=== PATIENT | male | born 1955 | race Caucasian/White ===

== ENCOUNTER 2018-04-10 13:06 | Inpatient (IN) | payer MEDICAID ==
--- NOTE | 2018-04-10 13:24 | EDPHY ---
H & P Stated Complaint: cough sob congestion nausea chills x weeks Time Seen by Provider: 04/10/18 13:24 HPI/ROS: HPI CHIEF COMPLAINT: Cough, congestion HISTORY OF PRESENT ILLNESS: This is a 63-year-old male, presents to the emergency room worsening cough, shortness of breath over the last week to 2 weeks. Patient is homeless. He smokes tobacco daily. He endorses productive cough green-yellow sputum. No blood. Complains of shortness of breath. Also endorses chills, sweats. Denies any significant pain. Past Medical History: Denies medical history denies taking any daily medications Past Surgical History: Denies surgical history Social History: Smokes tobacco daily, homeless. Family History: Noncontributory ROS REVIEW OF SYSTEMS: 10 Systems were reviewed and negative with the exception of the elements mentioned in the history of present illness. Exam Constitutional nontoxic, triage nursing summary reviewed, vital signs reviewed , awake/alert. Heart rate 116. Oxygen saturation 90%. 38.1 temp. Eyes normal conjunctivae and sclera, EOMI, PERRLA. HENT normal inspection, atraumatic, moist mucus membranes, no epistaxis, neck supple/ no meningismus, no raccoon eyes. Respiratory bronchitic sounding cough on exam. Wheezing throughout. No distress. Cardiovascular rate normal, regular rhythm, no murmur, no edema, distal pulses normal. Gastrointestinal soft, non-tender, no rebound, no guarding, normal bowel sounds, no distension, no pulsatile mass. Genitourinary no CVA tenderness. Musculoskeletal no midline vertebral tenderness, full range of motion, no calf swelling, no tenderness of extremities, no meningismus, good pulses, neurovascularly intact. Skin pink, warm, & dry, no rash, skin atraumatic. Neurologic awake, alert and oriented x 3, AAOx3, moves all 4 extremities equally, motor intact, sensory intact, CN II-XII intact, normal cerebellar, normal vision, normal speech. Psychiatric normal mood/affect. Heme/Lymph/Immune no lymphadenopathy. Differential Diagnosis: Includes but is not limited to in a particular order pneumonia, influenza, viral syndrome, COPD, reactive airway disease, viral pneumonia, bacterial pneumonia. Medical Decision Making: Plan for this patient IV establishment IV fluid bolus , basic labs, chest x-ray, DuoNeb breathing treatment, influenza re-evaluate. Re-evaluation: Patient here with cough, shortness of breath, fever and mild hypoxia. Patient's chest x-ray reviewed shows no pneumonia Patient is influenza a positive. Patient be started on Tamiflu. Plan for admission to the hospital for acute febrile illness, influenza, shortness of breath, hypoxia, wheezing and underlying lung disease. He is homeless. 1st dose of Tamiflu given in the emergency room. X-ray reviewed no pneumonia. Patient updated about influenza plan for hospital admission due to hypoxia, fever, influenza and him being homeless. I have ordered him Tamiflu. Consult the hospitalist service Dr. De La Torre who agrees to admit Source: Patient - Medical/Surgical History Hx Asthma: No Hx Chronic Respiratory Disease: No Hx Diabetes: No Hx Cardiac Disease: No Hx Renal Disease: No Hx Cirrhosis: No Hx Alcoholism: No Hx HIV/AIDS: No Hx Splenectomy or Spleen Trauma: No Other PMH: (denies). pna - Social History Smoking Status: Current every day smoker Constitutional: Initial Vital Signs Temperature (C) 38.1 C 04/10/18 13:13 Heart Rate 116 H 04/10/18 13:13 Respiratory Rate 18 04/10/18 13:13 Blood Pressure 146/92 H 04/10/18 13:13 O2 Sat (%) 90 L 04/10/18 13:13 O2 Delivery Mode Nasal Cannula O2 (L/minute) 2 Allergies/Adverse Reactions: No Known Allergies Allergy (Unverified 04/10/18 13:58) Medical Decision Making - Diagnostics Imaging Results: Imaging Impressions Chest X-Ray 04/10/18 13:32 Impression: Suspect airways disease with no superimposed pneumonia identified. - Data Points Laboratory Results: Laboratory Results 04/10/18 13:40 04/10/18 13:40 04/10/18 04/10/18 04/10/18 13:46 13:40 13:40 WBC 10.98 10^3/uL H 10^3/uL (3.80-9.50) RBC 5.08 10^6/uL 10^6/uL (4.40-6.38) Hgb 16.2 g/dL g/dL (13.7-17.5) Hct 48.0 % % (40.0-51.0) MCV 94.5 fL fL (81.5-99.8) MCH 31.9 pg pg (27.9-34.1) MCHC 33.8 g/dL g/dL (32.4-36.7) RDW 12.4 % % (11.5-15.2) Plt Count 183 10^3/uL 10^3/uL (150-400) MPV 10.3 fL fL (8.7-11.7) Neut % (Auto) 80.7 % H % (39.3-74.2) Lymph % (Auto) 7.7 % L % (15.0-45.0) [place] % (Auto) 10.8 % % (4.5-13.0) Eos % (Auto) 0.1 % L % (0.6-7.6) Baso % (Auto) 0.2 % L % (0.3-1.7) Nucleat RBC Rel Count 0.0 % % (0.0-0.2) Absolute Neuts (auto) 8.87 10^3/uL H 10^3/uL (1.70-6.50) Absolute Lymphs (auto) 0.84 10^3/uL L 10^3/uL (1.00-3.00) Absolute Monos (auto) 1.19 10^3/uL H 10^3/uL (0.30-0.80) Absolute Eos (auto) 0.01 10^3/uL L 10^3/uL (0.03-0.40) Absolute Basos (auto) 0.02 10^3/uL 10^3/uL (0.02-0.10) Absolute Nucleated RBC 0.00 10^3/uL 10^3/uL (0-0.01) Immature Gran % 0.5 % % (0.0-1.1) Immature Gran # 0.05 10^3/uL 10^3/uL (0.00-0.10) Sodium 130 mEq/L L mEq/L (135-145) Potassium 4.2 mEq/L mEq/L (3.5-5.2) Chloride 97 mEq/L mEq/L (97-110) Carbon Dioxide 25 mEq/l mEq/l (22-31) Anion Gap 8 mEq/L mEq/L (6-14) BUN 9 mg/dL mg/dL (7-23) Creatinine 0.7 mg/dL mg/dL (0.7-1.3) Estimated GFR > 60 Glucose 105 mg/dL H mg/dL (70-100) Calcium 8.2 mg/dL L mg/dL (8.5-10.4) POC Troponin I 0.01 ng/mL ng/mL (0.00-0.08) Nasal Influenza A PCR Nasal Influenza B PCR 04/10/18 13:25 WBC RBC Hgb Hct MCV MCH MCHC RDW Plt Count MPV Neut % (Auto) Lymph % (Auto) [place] % (Auto) Eos % (Auto) Baso % (Auto) Nucleat RBC Rel Count Absolute Neuts (auto) Absolute Lymphs (auto) Absolute Monos (auto) Absolute Eos (auto) Absolute Basos (auto) Absolute Nucleated RBC Immature Gran % Immature Gran # Sodium Potassium Chloride Carbon Dioxide Anion Gap BUN Creatinine Estimated GFR Glucose Calcium POC Troponin I Nasal Influenza A PCR FLU A DETECTED H (NEGATIVE) Nasal Influenza B PCR NEGATIVE FOR FLU B (NEGATIVE) Medications Given: Discontinued Medications Acetaminophen (Tylenol) 1,000 mg PO EDNOW ONE Stop: 04/10/18 13:44 Last Admin: 04/10/18 14:33 Dose: 1,000 mg Albuterol/Ipratropium (Duoneb) 3 ml IH EDNOW ONE Stop: 04/10/18 13:33 Last Admin: 04/10/18 13:48 Dose: 3 ml Point of Care Test Results: Chemistry 04/10/18 13:46 POC Troponin I 0.01 ng/mL ng/mL (0.00-0.08) Departure - Departure Disposition: [facility] Inpatient Acute Clinical Impression: Hypoxia, Influenza A Condition: Fair Referrals: NONE *PRIMARY CARE P,. [Primary Care Provider] - As per Instructions
[2018-04-10] MEDS ORDERED: IPRATROPIUM/ALBUTEROL 3 ML DEYVIAL IH ONE (13:32)
[2018-04-10] MEDS ORDERED: ACETAMINOPHEN 500 MG TAB PO ONE (13:43)
[2018-04-10 13:55] LABS: PLATELET COUNT 183 10^3/uL (150-400)
[2018-04-10] MEDS ORDERED: OSELTAMIVIR PHOSPHATE 75 MG CAP PO ONE (14:36)
[2018-04-10] MEDS ORDERED: ONDANSETRON DISINTEGRATING 4 MG TAB PO PRN (14:52)
[2018-04-10] MEDS ORDERED: ONDANSETRON 4 MG/2 ML VIAL IVP PRN (14:52)
[2018-04-10] MEDS ORDERED: BENZONATATE 100 MG CAP PO PRN (14:53)
[2018-04-10] MEDS ORDERED: IPRATROPIUM/ALBUTEROL 3 ML DEYVIAL IH PRN (14:55)
[2018-04-10] MEDS ORDERED: NICOTINE 21 MG/24 HR PATCH TD SCH (15:00)
--- NOTE | 2018-04-10 15:34 | GHP ---
[f rep st] HISTORY AND PHYSICAL DATE OF ADMISSION: 04/10/2018 CHIEF COMPLAINT: Fever, influenza A, cough. HISTORY OF PRESENT ILLNESS: A 63-year-old homeless male with no past medical history, presenting with worsening cough, shortness of breath and fevers over the past 2 weeks. Endorses a productive cough with yellow sputum. Has had subjective fevers, myalgias, headache, nausea, and vomiting. He has not been able to keep down much p.o. intake. In the ER, he was positive for influenza A , was tachycardic to the 116s. REVIEW OF SYSTEMS: I completed a 10-point review of systems, negative except as noted in the HPI. PAST MEDICAL HISTORY: Tobacco dependence. PAST SURGICAL HISTORY: Ankle surgery, heel surgery, abdominal surgery secondary to a volvulus, wrist surgery. SOCIAL HISTORY: Tobacco: A pack a day for 30 years. Occasional alcohol. Occasional marijuana. Lives in a retirement. FAMILY HISTORY: No diabetes or hypertension. ALLERGIES: None. HOME MEDICATIONS: None. PHYSICAL EXAMINATION: VITAL SIGNS: Temperature 38.1, blood pressure is 146/92 , heart rate 116, respirations 18, 90% on room air, 92 on 2 L. GENERAL: Lying in bed fatigued, but no acute distress. HEENT: PERRLA. Mildly dry mucous membranes. CV: Tachy but regular. No murmurs, gallops, or rubs. LUNGS: Diminished breath sounds throughout. Poor air movement. No wheezes or crackles. ABDOMEN: Soft, nontender, nondistended. Positive bowel sounds. : No [place]. MUSCULOSKELETAL: 5/5 upper and lower extremities. NEURO: 2 through 12 intact. PSYCH: Alert and oriented x3. LABORATORY: WBC 10, hemoglobin 16, hematocrit 48, platelets 183. Sodium 130, potassium 4.2, chloride 197, carbon dioxide 25, creatinine 0.7, glucose 105, calcium 8.2. Troponin 0.01. Influenza A positive. Chest x-ray is personally reviewed by me. Mild peribronchial thickening. No effusion or opacity. ASSESSMENT AND PLAN: 1. Sepsis: febrile, tachycardia and influenza. Symptoms greater than 48 hours, thus will not start Tamiflu. Treat with IVFs, cough suppressants, Tylenol. No evidence of pneumonia on x-ray. Add DuoNeb and prednisone with significant tobacco history. 2. Tobacco dependence. Declined nicotine patch. 3. Hypovolemic hyponatremia. Intravenous fluids. Repeat in the morning. 4. Homelessness. Lives in a retirement. 5. Diet: Regular. 6. Deep venous thrombosis prophylaxis: Lovenox. DISPOSITION: Observation for DuoNeb, prednisone, IV fluids. /[id number]/MODL CAMILLA
[2018-04-10] MEDS: NS 1,000 ML IV SCH (17:23)
[2018-04-10] MEDS: predniSONE 20 MG TAB PO SCH (17:29)
[2018-04-10] MEDS: IBUPROFEN 600 MG TAB PO PRN (18:02)
[2018-04-10] MEDS: GUAIFENESIN/DM 10 ML UDCUP PO PRN (18:02)
[2018-04-11] MEDS: NS 1,000 ML IV SCH (04:22)
[2018-04-11] MEDS: predniSONE 20 MG TAB PO SCH (09:10)
[2018-04-11] MEDS: ENOXAPARIN 40 MG/0.4 ML SYR SC SCH (09:11)
[2018-04-11] MEDS ORDERED: CALCIUM CARBONATE 500 MG CHEWABLE TAB PO PRN (10:10)
[2018-04-11] MEDS: ACETAMINOPHEN 325 MG TAB PO PRN ×2 (10:38→18:13)
[2018-04-11] MEDS: NICOTINE 14 MG/24 HR PATCH TD SCH (10:38)
--- NOTE | 2018-04-11 10:42 | ASMTCMCOM ---
CM Note CM Note Notes: Pts case discussed w/ Dr. Carlin. Pt is a 63 y/o man admitted for hypoxia and influenza A. Pt is homeless and currently on a couple liters of o2. Pt is listed as self pay. CM spoke to Jessica harper/ [employer]. Pt has Medicaid and his Medicaid # is [id number]. CM made a referral to [facility]. Pt will most likely d/c without any needs. CM available for changes. Plan: Independent Date Signed: 04/11/2018 10:42 AM Electronically Signed By:BERONICA Vidal
--- NOTE | 2018-04-11 11:40 | HOSPPROG ---
Hospitalist Progress Note Assessment/Plan: 63yo homeless M here with 2 weeks of worsening shortness of breath and fevers found to have influenza A. # Sepsis: Fever, tachycardia with viral source. Physiology improved. # Influenza A - No tamiflu as sxs started >48 hours ago - Tylenol, cough suppressants - Schedule duonebs, prednisone with significant smoking hx # Acute hypoxia: Requiring 2-3L. - Wean as able to keep sat>90% #Hypovolemic hyponatremia: Normalized with IVF - Stop fluids # Tobacco use - Nicotine patch VTE ppx: LMWH Code: full Dispo: Switch to inpatient Subjective: Still feeling really crummy. Labored breathing, sweating. Body aches. Objective: Vital Signs Temp Pulse Resp BP Pulse Ox 36.6 C 85 20 148/98 H 94 04/11/18 07:22 04/11/18 07:22 04/11/18 07:22 04/11/18 07:22 04/11/18 07:22 Laboratory Results 04/11/18 04:20 04/10/18 04/11/18 04/12/18 05:59 05:59 05:59 Intake Total 1356 Output Total 501 Balance 855 - Physical Exam Constitutional: no apparent distress, unkempt Eyes: PERRL, anicteric sclera Ears, Nose, Mouth, Throat: moist mucous membranes Cardiovascular: regular rate and rhythym, no murmur, rub, or gallop, No edema Respiratory: no respiratory distress, reduced air movement, expiratory wheeze Gastrointestinal: normoactive bowel sounds, soft, non-tender abdomen, no palpable masses Genitourinary: no bladder fullness, no bladder tenderness, no renal bruits Skin: no rashes or abrasions, no fluctuance, no induration Musculoskeletal: full muscle strength, no muscle tenderness, normal joint ROM Neurologic: AAOx3, sensation intact bilaterally Psychiatric: interacting appropriately, not anxious, not encephalopathic, thought process linear ICD10 Worksheet Patient Problems: Problems Problem Status Onset Hypoxia Acute Influenza A Acute
[2018-04-11] MEDS: IBUPROFEN 600 MG TAB PO PRN (11:43)
[2018-04-11] MEDS: IPRATROPIUM/ALBUTEROL 3 ML DEYVIAL IH SCH ×3 (11:48→23:46)
[2018-04-11] MEDS: GUAIFENESIN/DM 10 ML UDCUP PO PRN ×2 (13:50→18:13)
--- NOTE | 2018-04-11 15:37 | PDMN ---
Medical Necessity Medical [place] [facility] [place] Sepsis, A-3 days: 63 yo homeless pt w/ cough, SOB. Dx w/ sepsis 2nd influenza, initially OBS for supportive care w/ IVF, O2, nebs and steroids. Pt requires additional MN as still requiring O2 for hypoxemia beyond OBS care, still w/ labored breathing. Change to IP status 04/11/18@1509 per MD order
[2018-04-12] MEDS: IPRATROPIUM/ALBUTEROL 3 ML DEYVIAL IH SCH ×2 (06:20→09:33)
[2018-04-12 08:19] VITALS: BP 121/95
[2018-04-12] MEDS: NICOTINE 14 MG/24 HR PATCH TD SCH (08:33)
[2018-04-12] MEDS: predniSONE 20 MG TAB PO SCH (08:33)
[2018-04-12] MEDS: ENOXAPARIN 40 MG/0.4 ML SYR SC SCH (08:33)
--- NOTE | 2018-04-12 09:29 | PDDCSUM ---
Discharge Summary Discharge Summary: Date of Admission: 04/10/2018 Date of Discharge: 04/12/2018 Studies: CXR Discharge Diagnoses: 1. Sepsis 2. Influenza A infection 3. Acute hypoxia, resolved 4. Hypovolemic hyponatremia 5. Tobacco use Brief Hospital Course: 63yo homeless M here with 2 weeks of worsening shortness of breath and fevers found to have influenza A. CXR without pneumonia. He was mildly hypoxic and was also meeting sepsis criteria on arrival. His symptoms and sepsis physiology improved with IV fluids and bronchodilators. He was not given tamiflu given the duration of symptoms prior to presentation. He was treated with a short course of prednisone given his extensive smoking history. He was weaned off supplemental oxygen prior to discharge. He was encouraged to quit smoking. Medications: Please refer to EMR for complete list. I sent prescriptions to prednisone and albuterol inhaler to the [facility] pharmacy. Follow Up Plan: 1. Establish with PCP at [facility] Physical Exam: Vitals reviewed, afebrile. Alert and oriented, rrr without m/r/g , lungs clear without wheezes, abdomen soft and nt, no leg edema, no rashes.
[2018-04-12] MEDS: ACETAMINOPHEN 325 MG TAB PO PRN (10:53)
--- NOTE | 2018-04-12 12:21 | ASMTCMCOM ---
CM Note CM Note Notes: Patient discharging today. Reserved a [facility] bed, provided a bus pass, gave patient his medications, and scheduled him an appointment with a PCP. Patient to see Dr. Abdi Preciado with [facility] on April 13, 2018 at 2:00 PM with a check in time of 1:40. Patient will need to bring his d/c paperwork from the hospital, Medicaid card, photo ID, and his medications. Patient was given an address/directions and the phone number to call if he has to cancel. No further needs. Date Signed: 04/12/2018 12:17 PM Electronically Signed By:Mandie Knight LCSW
--- NOTE | 2018-04-12 12:22 | ASMTDCNOTE ---
Case Management Discharge Discharge Order Complete? Answers: Yes Patient to Obtain Answers: via MAP Medications Transportation Arranged Answers: Bus Tokens Discharge Comments Notes: Patient is discharging today to the [facility] where we reserved a bed for him. Patient was given a bus pass and his medications were mapped. A PCP appointment was made for him with [facility] for April 13, 2018 at 2:00 PM. Check in time is 1:40 PM. He will see Dr. Abdi Preciado. No further needs. Date Signed: 04/12/2018 12:21 PM Electronically Signed By:Mandie Knight LCSW
--- NOTE | 2018-04-12 12:25 | ASDISCHSUM ---
Discharge Information Plan Status:Homeless/Penitentiary Medically Cleared to Leave:04/11/2018 Discharge Date:04/11/2018 CM D/C Disposition:Home, Routine, Self-Care ADT D/C Disposition:Home, Routine, Self-Care Projected Discharge Date:04/12/2018 12:00 AM Transportation at D/C:Bus Ticket Discharge Delay Reason: Follow-Up Date:04/12/2018 12:00 AM Discharge Slot:2 - 12:01 pm - 18:00 pm Final Diagnosis:Sepsis, Influenza A Placement Information Patient Contact Information Contact Name:MARGO Relationship:Daughter Address:[address] Work Phone: City: [place] Alternate Phone: State/Zip Code:[place] [address] Email: Financial Information Financial Class:Medicaid Primary Plan Desc:[employer] [place] [place] Primary Plan Number:[id number] Secondary Plan Desc: Secondary Plan Number: Assessment Information [facility] Progress Note CM Note CM Note Notes: Pts case discussed w/ Dr. Carlin. Pt is a 63 y/o man admitted for hypoxia and influenza A. Pt is homeless and currently on a couple liters of o2. Pt is listed as self pay. CM spoke to [employer]/ [employer]. Pt has Medicaid and his Medicaid # is [id number]. CM made a referral to [facility]. Pt will most likely d/c without any needs. CM available for changes. Plan: Independent Date Signed: 04/11/2018 10:42 AM Electronically Signed By:BERONICA Vidal SIMINE LACSukumar Length of stay for Answers: 1 day current admission Acuity / Level of Answers: Yes Care: Did the patient have an inpatient admission? Comorbidities - select Answers: Other Notes: Sepsis, influenza A all that apply # of Emergency department Answers: 1-2 visits in the last 6 months Social determinants Answers: Homelessness (street, group home) Score: 9 Date Signed: 04/12/2018 12:24 PM Electronically Signed By:Mandie Knight LCSW [facility] CM Progress Note CM Note CM Note Notes: Patient discharging today. Reserved a group home bed, provided a bus pass, gave patient his medications, and scheduled him an appointment with a PCP. Patient to see Dr. Abdi Preciado with [facility] on April 13, 2018 at 2:00 PM with a check in time of 1:40. Patient will need to bring his d/c paperwork from the hospital, Medicaid card, photo ID, and his medications. Patient was given an address/directions and the phone number to call if he has to cancel. No further needs. Date Signed: 04/12/2018 12:17 PM Electronically Signed By:Mandie Knight LCSW Case Management Discharge Plan Note Case Management Discharge Discharge Order Complete? Answers: Yes Patient to Obtain Answers: via MAP Medications Transportation Arranged Answers: Bus Tokens Discharge Comments Notes: Patient is discharging today to the [facility] where we reserved a bed for him. Patient was given a bus pass and his medications were mapped. A PCP appointment was made for him with [facility] for April 13, 2018 at 2:00 PM. Check in time is 1:40 PM. He will see Dr. Abdi Preciado. No further needs. Date Signed: 04/12/2018 12:21 PM Electronically Signed By:Mandie Knight [facility] Intervention Information
== END 2018-04-12 14:51 | disposition home or self-care (01) | DRG 720 ==
LOC: F3E 17:08 → OBSVTOIN 04-11 15:09
PROVIDERS: ADMIT Internal Medicine; ATTEND Internal Medicine
DX: A41.9 Sepsis, unspecified organism (principal); J10.1 Influenza due to other identified influenza virus with other respiratory manifestations; R09.02 Hypoxemia; E87.1 Hypo-osmolality and hyponatremia; Z59.0 Homelessness; F17.210 Nicotine dependence, cigarettes, uncomplicated
CPT/HCPCS: 84484-ER; G0378; J1650; J7512